=== PATIENT | female | born 1930 | race Caucasian/White ===

== ENCOUNTER 2017-07-31 06:05 | Inpatient (IN) | payer OTHER ==
[~2017-07-31] VITALS: Ht 165.1 cm; Wt 117.1 kg
[2017-07-31] MEDS ORDERED: DSS100 PO (06:24)
[2017-07-31] MEDS ORDERED: OXYB5 PO (06:24)
[2017-07-31] MEDS ORDERED: ATOR40TA28 PO (06:24)
[2017-07-31] MEDS ORDERED: HYDR-4061 PO (06:24)
[2017-07-31] MEDS ORDERED: DULO20CA30 PO (06:24)
[2017-07-31] MEDS ORDERED: VITAD1000 PO (06:24)
[2017-07-31] MEDS ORDERED: DABI75CA3 PO (06:24)
[2017-07-31] MEDS ORDERED: LORA0.5T2 PO (06:24)
[2017-07-31] MEDS ORDERED: FURO20 PO (06:24)
[2017-07-31] MEDS ORDERED: GLIP5 PO (06:24)
[2017-07-31] MEDS ORDERED: ONDA4 PO (06:24)
[2017-07-31] MEDS ORDERED: GABA-531 PO (06:24)
[2017-07-31] MEDS ORDERED: NYST15PO3 TP (06:24)
[2017-07-31] MEDS ORDERED: 7030E SQ (06:24)
[2017-07-31] MEDS ORDERED: CETI-290 PO (06:24)
[2017-07-31] MEDS ORDERED: ALBU8HFA IH (06:24)
[2017-07-31] MEDS ORDERED: OS500 PO (06:24)
[2017-07-31] MEDS ORDERED: LEVO100 PO (06:24)
[2017-07-31] MEDS ORDERED: CARV6 PO (06:24)
[2017-07-31] MEDS ORDERED: LACT30L PO (06:24)
[2017-07-31] MEDS ORDERED: LEVE500T53 PO (06:24)
[2017-07-31] MEDS ORDERED: SENN8.6T90 PO (06:24)
[2017-07-31 06:28] LABS: GLUCOSE,POINT OF CARE 92 MG/DL (70-110)
[2017-07-31 07:20] LABS: ABG A-A DIFF O2 406.3 mmHg (10-20.0); ABG BASE EXCESS 5.7 mmol/L (-2.0-3.0); ABG CARBOXYHEMOGLOBIN 0.8 % (0.0-1.5); ABG HCO3 27.9 mmol/L (22.0-26.0); ABG OXYGEN CONTENT 15.6 mL/dL (15.0-23.0); ABG OXYGEN SATURATION 99.7 % (95.0-98.0); ABG OXYHEMOGLOBIN 98.9 % (94.0-100.0); ABG PH 7.232 (7.35-7.450); ABG TOTAL HEMOGLOBIN 10.8 G/dL (12.0-18.0); PO2, ARTERIAL BG 226.9 mmHg (71.0-79.0); SOURCE, BLOOD GAS ARTERIAL; TEMPERATURE, FAHRENHEIT, BG 98.1 FAHREN (96.0-98.6)
[2017-07-31 07:21] LABS: ABG PCO2 81 mmHg (35-45); O2 DEVICE,BLOOD GAS NON REBREATHER (ROOM AIR); SITE, BLOOD GAS LFT RADIAL
[2017-07-31] MEDS ORDERED: SODIUM CHLORIDE 0.9% 1,000 ML IV ONE ×3 (08:15→21:00)
[2017-07-31] MEDS ORDERED: CEFEPIME HCL 1 GM in DEXTROSE 5%-WATER 10 ML IV ONE (08:15)
[2017-07-31] MEDS ORDERED: VANCOMYCIN HCL 1 GM/D5% WATER 200 ML IV ONE (08:15)
[2017-07-31 08:36] LABS: BASOPHILS % (AUTO) 0.9 % (0.0-2.0); EOSINOPHILS % (AUTO) 0.7 % (1.0-6.0); HEMATOCRIT 30.3 % (36-46); HEMOGLOBIN 9.8 g/dL (12.0-16.0); LYMPHOCYTES # (AUTO) 0.5 K/uL (1.0-4.8); LYMPHOCYTES % (AUTO) 7.9 % (22.0-44.0); MEAN CORPUSCULAR HEMOGLOBIN 30.9 pg (26.0-34.0); MEAN CORPUSCULAR HGB CONC 32.5 G/dL (31.0-37.0); MEAN CORPUSCULAR VOLUME 95 fL (80-100); MONOCYTES # (AUTO) 0.4 K/uL (0.1-1.0); MONOCYTES % (AUTO) 5.7 % (2.0-9.0); NEUTROPHILS # (AUTO) 5.7 K/uL (1.8-7.7); NEUTROPHILS % (AUTO) 84.8 % (40.0-70.0); PLATELET COUNT (AUTO) 256 K/uL (150-450); RED BLOOD CELL COUNT(AUTO) 3.18 MIL/uL (4.00-5.20); RED CELL DISTRIBUTION WIDTH 16.3 % (11.5-14.5)
[2017-07-31 08:48] LABS: INR 1.6 (0.9-1.1); PROTHROMBIN TIME 16.7 SEC (9.4-11.6)
[2017-07-31 08:53] LABS: ANION GAP 1 mmol/L (8-16); CALCIUM, TOTAL 9.1 mg/dL (8.8-10.5); CARBON DIOXIDE 34 mmol/L (22-29); CHLORIDE 101 mmol/L (98-107); CREATININE 0.96 mg/dL (0.60-1.30); GLOMERULAR FILTR. RATE CALC 55 mL/min (>60); GLUCOSE,RANDOM 117 mg/dL (70-110); SODIUM SERUM 136 mmol/L (136-145); UREA NITROGEN, BLOOD 25 mg/dL (7-18)
[2017-07-31 09:01] LABS: LACTIC ACID 0.4 mmol/L (0.4-2.0)
[2017-07-31 09:08] LABS: ALANINE AMINOTRANSFERASE 24 U/L (12-78); ALBUMIN 2.3 g/dL (3.4-5.0); ALKALINE PHOSPHATASE 80 U/L (46-116); ASPARTATE AMINOTRANSFERASE 21 U/L (15-37); BILIRUBIN,TOTAL 0.3 mg/dL (0.1-1.0); CREATINE KINASE, TOTAL 35 U/L (26-192); TOTAL PROTEIN, SERUM 6.5 g/dL (6.4-8.2)
[2017-07-31 09:10] LABS: APPEARANCE,URINE TURBID (CLEAR); BILIRUBIN,URINE NEGATIVE (NEGATIVE); GLUCOSE, URINE (UA) NEGATIVE (NEGATIVE); KETONES,URINE NEGATIVE (NEGATIVE); LEUKOCYTE ESTERASE ,URINE LARGE (NEGATIVE); NITRATE,URINE POSITIVE (NEGATIVE); OCCULT BLOOD,URINE LARGE (NEGATIVE); PROTEIN,URINE POS 1+ (NEGATIVE); UROBILINOGEN,URINE 0.2 mg/dL (<=1.0)
[2017-07-31 09:11] LABS: B-TYPE NATRIURETIC PEPTIDE 660 pg/mL (0-100)
[2017-07-31] MEDS ORDERED: NOREPINEPHRINE 4 MG/D5%-WATER 250 ML IV ONE (09:13)
[2017-07-31 09:29] LABS: BACTERIA,URINE Moderate /HPF (None Seen); SQUAMOUS EPITHELIAL CELL,UR Many /LPF (None Seen)
[2017-07-31] MEDS ORDERED: NOREPINEPHRINE 4 MG/D5%-WATER 250 ML IV PRN ×2 (09:30→12:15)
[2017-07-31] MEDS ORDERED: ACETAMINOPHEN 325 MG TABLET PO PRN (09:45)
[2017-07-31] MEDS ORDERED: HydrALAZINE HCL 20 MG/ML VIAL IVP ONE (09:45)
[2017-07-31] MEDS ORDERED: ONDANSETRON HCL 4 MG/2 ML VIAL IVP PRN ×2 (09:45→21:00)
[2017-07-31] MEDS ORDERED: 0.9% SODIUM CHLORIDE 10 ML SYRINGE IVP PRN (09:45)
[2017-07-31] MEDS: IPRATROPIUM BROMIDE 0.5 MG/2.5 ML NEB SOLUTION NEB SCH ×3 (11:01→19:00)
[2017-07-31] MEDS: ALBUTEROL SULFATE 2.5 MG/0.5 ML NEB SOLUTION NEB SCH ×3 (11:01→19:00)
[2017-07-31] MEDS ORDERED: DABI150 PO (11:07)
[2017-07-31 12:00] VITALS: BP 95/46
[2017-07-31] MEDS ORDERED: MORPHINE SULFATE 4 MG/ML SYRINGE IVP PRN ×2 (12:15→21:00)
[2017-07-31] MEDS ORDERED: INSULIN LISPRO 100 UNITS/ML SQ PRN ×2 (12:15→21:15)
[2017-07-31] MEDS ORDERED: GLUCAGON,HUMAN RECOMBINANT 1 MG VIAL IM PRN (12:15)
[2017-07-31 12:21] LABS: ABG A-A DIFF O2 81.4 mmHg (10-20.0); ABG CARBOXYHEMOGLOBIN 0.9 % (0.0-1.5); ABG HCO3 24.5 mmol/L (22.0-26.0); ABG METHEMOGLOBIN 0.3 % (0.0-1.5); ABG OXYGEN CONTENT 13.1 mL/dL (15.0-23.0); ABG OXYGEN SATURATION 93.5 % (95.0-98.0); ABG OXYHEMOGLOBIN 92.4 % (94.0-100.0); ABG PCO2 61 mmHg (35-45); ABG PH 7.275 (7.35-7.450); PO2, ARTERIAL BG 63.1 mmHg (71.0-79.0); SOURCE, BLOOD GAS ARTERIAL; TEMPERATURE, FAHRENHEIT, BG 94.3 FAHREN (96.0-98.6)
[2017-07-31 12:22] LABS: O2 DEVICE,BLOOD GAS BIPAP (ROOM AIR); SITE, BLOOD GAS LFT RADIAL
[2017-07-31 12:32] LABS: GLUCOSE,POINT OF CARE 98 MG/DL (70-110)
[2017-07-31 16:00] VITALS: BP 91/48
[2017-07-31] MEDS: PIPERACILLIN/TAZO 3.375 GM/D5W 50 ML IV SCH ×2 (16:00→21:39)
[2017-07-31 17:27] LABS: GLUCOSE,POINT OF CARE 112 MG/DL (70-110)
[2017-07-31] MEDS ORDERED: FentaNYL CITRATE-PF 100 MCG/2 ML VIAL ONE (19:44)
[2017-07-31] MEDS ORDERED: HEPARIN SODIUM,PORCINE 1,000 UNITS/ML 10 ML VIAL ONE (19:44)
[2017-07-31] MEDS ORDERED: MIDAZOLAM HCL 2 MG/2 ML VIAL ONE (19:44)
[2017-07-31] MEDS ORDERED: HEPARIN SODIUM 1000 UNITS/NS 500 ML ONE ×2 (19:44→20:01)
[2017-07-31] MEDS ORDERED: LIDOCAINE HCL/PF 1% 30 ML VIAL ONE (19:44)
[2017-07-31] MEDS ORDERED: NALOXONE HCL 0.4 MG/ML VIAL ONE (19:44)
[2017-07-31] MEDS ORDERED: IODIXANOL 320 MG/ML 150 ML VIAL ONE (19:44)
[2017-07-31] MEDS ORDERED: IOHEXOL 240 MG/ML 50 ML VIAL ONE (19:44)
[2017-07-31] MEDS ORDERED: FLUMAZENIL 0.1 MG/ML 5 ML VIAL IVP ONE (19:44)
[2017-07-31] MEDS ORDERED: SODIUM CHLORIDE 0.9% 250 ML IV ONE (19:45)
[2017-07-31 20:00] VITALS: BP 88/64
[2017-07-31] MEDS ORDERED: BISACODYL 10 MG RECTAL RECTAL SUPPOSITORY PR PRN (21:00)
[2017-07-31] MEDS: DOCUSATE SODIUM 100 MG CAPSULE PO SCH (21:00)
[2017-07-31] MEDS ORDERED: SODIUM POLYSTYRENE SULFONATE 15 GM/60 ML SUSPENSION BOTTLE PR ONE (21:00)
[2017-07-31] MEDS ORDERED: *CLINICAL-LEVOFLOXACIN IVPB DOSING CLINICAL ONE (21:00)
[2017-07-31] MEDS ORDERED: HYDROCODONE/ACETAMINOPHEN 5-325 MG TABLET PO PRN (21:00)
[2017-07-31] MEDS ORDERED: ZOLPIDEM TARTRATE 5 MG TABLET PO PRN (21:00)
[2017-07-31] MEDS ORDERED: MAGNESIUM HYDROXIDE SUSPENSION 30 ML UDCUP PO PRN (21:00)
[2017-07-31] MEDS ORDERED: DEXTROSE 50%-WATER 25 GM/50 ML SYG IVP PRN (21:15)
[2017-07-31] MEDS ORDERED: PHENYLEPHRINE 200 MG/D5%-WATER 250 ML IV PRN (21:28)
[2017-07-31] MEDS ORDERED: LEVOFLOXACIN 500 MG/D5% WATER 100 ML IV SCH (22:00)
[2017-07-31 22:55] VITALS: BP 105/49
[2017-07-31] MEDS: ACETAMINOPHEN 325 MG TABLET PO PRN (22:57)
[2017-07-31 23:17] LABS: GLUCOSE,POINT OF CARE 90 MG/DL (70-110)
[2017-07-31] MEDS: HEPARIN SODIUM,PORCINE 5,000 UNITS/ML VIAL SQ SCH (23:58)
[2017-08-01] VITALS (7 sets, daily range): BP systolic 91–125; BP diastolic 46–85
[2017-08-01] MEDS: PIPERACILLIN/TAZO 3.375 GM/D5W 50 ML IV SCH ×4 (03:33→21:07)
[2017-08-01 05:21] LABS: BASOPHILS % (AUTO) 0.7 % (0.0-2.0); EOSINOPHILS % (AUTO) 1.5 % (1.0-6.0); HEMATOCRIT 25.9 % (36-46); HEMOGLOBIN 8.5 g/dL (12.0-16.0); LYMPHOCYTES # (AUTO) 0.8 K/uL (1.0-4.8); LYMPHOCYTES % (AUTO) 14.8 % (22.0-44.0); MEAN CORPUSCULAR HGB CONC 32.6 G/dL (31.0-37.0); MEAN CORPUSCULAR VOLUME 95 fL (80-100); MONOCYTES # (AUTO) 0.4 K/uL (0.1-1.0); MONOCYTES % (AUTO) 7.4 % (2.0-9.0); NEUTROPHILS # (AUTO) 3.9 K/uL (1.8-7.7); NEUTROPHILS % (AUTO) 75.6 % (40.0-70.0); PLATELET COUNT (AUTO) 226 K/uL (150-450); RED BLOOD CELL COUNT(AUTO) 2.73 MIL/uL (4.00-5.20); RED CELL DISTRIBUTION WIDTH 15.9 % (11.5-14.5)
[2017-08-01 05:30] LABS: ALBUMIN 1.9 g/dL (3.4-5.0); BILIRUBIN,TOTAL 0.3 mg/dL (0.1-1.0); CALCIUM, TOTAL 8.3 mg/dL (8.8-10.5); CREATININE 0.93 mg/dL (0.60-1.30); POTASSIUM 4.7 mmol/L (3.5-5.1); TOTAL PROTEIN, SERUM 5.7 g/dL (6.4-8.2)
[2017-08-01 05:42] LABS: GLUCOSE,POINT OF CARE 101 MG/DL (70-110)
[2017-08-01] MEDS ORDERED: LEVOTHYROXINE SODIUM 100 MCG TABLET PO SCH (06:30)
[2017-08-01] MEDS: LevETIRAcetam 500 MG TABLET PO SCH ×2 (08:30→21:04)
[2017-08-01] MEDS: DOCUSATE SODIUM 100 MG CAPSULE PO SCH ×2 (08:30→21:04)
[2017-08-01] MEDS: OXYBUTYNIN CHLORIDE 5 MG TABLET PO SCH ×2 (08:30→21:00)
[2017-08-01] MEDS: HEPARIN SODIUM,PORCINE 5,000 UNITS/ML VIAL SQ SCH ×2 (08:30→16:53)
[2017-08-01] MEDS ORDERED: PANTOPRAZOLE SODIUM 40 MG DR TABLET PO SCH (09:00)
[2017-08-01] MEDS ORDERED: ATORVASTATIN CALCIUM 40 MG TABLET PO SCH (09:00)
[2017-08-01] MEDS ORDERED: CALCIUM OYSTER SHELL 500 MG TABLET PO SCH (09:00)
[2017-08-01] MEDS ORDERED: SODIUM CHLORIDE 0.9% 500 ML IV ONE (10:12)
[2017-08-01] MEDS ORDERED: TraMADol HCL 50 MG TABLET PO PRN (14:00)
[2017-08-01] MEDS: ACETAMINOPHEN 325 MG TABLET PO PRN (21:05)
[2017-08-02 00:18] LABS: GLUCOMETER DEV NAME(LOC) 5N 2S; GLUCOSE,POINT OF CARE 154 MG/DL (70-110)
[2017-08-02 06:33] LABS: GLUCOMETER DEV NAME(LOC) 5S 2P; GLUCOSE,POINT OF CARE 118 MG/DL (70-110)
[2017-08-02 06:33] LABS: GLUCOMETER DEV NAME(LOC) 5S 2P; GLUCOSE,POINT OF CARE 138 MG/DL (70-110)
== END 2017-08-01 21:50 | disposition short-term general hospital (02) | DRG 853 ==
LOC: EMS 06:06 → ICU 09:54 → 5S 08-01 09:25
PROVIDERS: ADMIT Internal Medicine; ATTEND Internal Medicine
PROC: 5A09357 Assistance with Respiratory Ventilation, Less than 24 Consecutive Hours, Continuous Positive Airway Pressure (ICD-10-PCS; principal; 2017-07-31)
PROC: 06CM3ZZ Extirpation of Matter from Right Femoral Vein, Percutaneous Approach (ICD-10-PCS; 2017-07-31)
PROC: 05H333Z Insertion of Infusion Device into Right Innominate Vein, Percutaneous Approach (ICD-10-PCS; 2017-07-31)
PROC: 05PYX3Z Removal of Infusion Device from Upper Vein, External Approach (ICD-10-PCS; 2017-07-31)
PROC: 06HC33Z Insertion of Infusion Device into Right Common Iliac Vein, Percutaneous Approach (ICD-10-PCS; 2017-07-31)
PROC: B51 Imaging, Veins, Fluoroscopy (ICD-10-PCS; 2017-07-31)
DX: A41.9 Sepsis, unspecified organism (principal); E43 Unspecified severe protein-calorie malnutrition; J96.01 Acute respiratory failure with hypoxia; J96.02 Acute respiratory failure with hypercapnia; T81.506A Unspecified complication of foreign body accidentally left in body following aspiration, puncture or other catheterization, initial encounter; E87.2 Acidosis; Z68.41 Body mass index [BMI] 40.0-44.9, adult; E66.2 Morbid (severe) obesity with alveolar hypoventilation; N39.0 Urinary tract infection, site not specified; E03.9 Hypothyroidism, unspecified; E87.5 Hyperkalemia; R32 Unspecified urinary incontinence; Z86.711 Personal history of pulmonary embolism; I69.344 Monoplegia of lower limb following cerebral infarction affecting left non-dominant side; Z86.718 Personal history of other venous thrombosis and embolism; Z79.899 Other long term (current) drug therapy; Z79.4 Long term (current) use of insulin; Z88.8 Allergy status to other drugs, medicaments and biological substances
CPT/HCPCS: 36000; 36556; 71250; 72192; 74150; 76000; 82805; 83605; 87040; 87081; 87086; 93005; 93306; 94640; 94660; 96365; 96366; 99291; J0692; J1644; J1956; J2250; J2270; J2310; J2543; J3010; J3370; J3490; J7030; J7040; J7050; J7060; Q9966; Q9967